=== PATIENT | male | born 1980 | race Caucasian/White ===

== ENCOUNTER 2016-09-27 13:49 | Outpatient (CLI) | payer OTHER | END 2016-09-27 13:50 | disposition home or self-care (01) | DX: G47.30 Sleep apnea, unspecified (principal); G47.8 Other sleep disorders; G47.10 Hypersomnia, unspecified; R06.83 Snoring ==

== ENCOUNTER 2016-11-21 19:32 | Outpatient (CLI) | payer OTHER | END 2016-11-21 19:33 | disposition home or self-care (01) | LOC: SC 19:32 | PROVIDERS: ATTEND Internal Medicine Pulmonary Disease | DX: G47.33 Obstructive sleep apnea (adult) (pediatric) (principal); Z68.24 Body mass index [BMI] 24.0-24.9, adult | CPT/HCPCS: 95810 ==

== ENCOUNTER 2016-12-23 11:04 | Outpatient (CLI) | payer OTHER | END 2016-12-23 11:05 | disposition home or self-care (01) | LOC: SC 11:04 | PROVIDERS: ATTEND Nurse Practitioner Family | DX: G47.33 Obstructive sleep apnea (adult) (pediatric) (principal) | CPT/HCPCS: 99212; 99214 ==

== ENCOUNTER 2017-05-18 15:48 | Outpatient (CLI) | payer OTHER | END 2017-05-18 15:49 | disposition home or self-care (01) | LOC: SC 15:48 | PROVIDERS: ATTEND Nurse Practitioner Family | DX: G47.33 Obstructive sleep apnea (adult) (pediatric) (principal) | CPT/HCPCS: 99212; 99214 ==

== ENCOUNTER 2017-08-18 09:27 | Outpatient (CLI) | payer OTHER | END 2017-08-18 09:28 | disposition home or self-care (01) | LOC: SC 09:27 | PROVIDERS: ATTEND Nurse Practitioner Family | DX: G47.33 Obstructive sleep apnea (adult) (pediatric) (principal) | CPT/HCPCS: 99212; 99214 ==

== ENCOUNTER 2018-01-03 16:25 | Outpatient (CLI) | payer OTHER ==
--- NOTE | 2018-01-03 18:26 | Ultrasound Report ---
Procedure Date: 01/03/2018 Accession Number: [id number] / [id number] Procedure: US - Testicle w/Doppler CPT Code: FULL RESULT: EXAM: SCROTAL ULTRASOUND WITH DOPPLER EXAM DATE: 01/03/2018 05:55 PM. CLINICAL HISTORY: Lower abdominal pain, concern for inguinal hernia. COMPARISON: None. TECHNIQUE: Real-time scanning was performed with static images obtained. Both color-flow and Doppler spectral analysis were utilized. FINDINGS: Right: Testis: 4.3 x 2.9 x 2.1 cm. Normal size and echotexture. No mass, calcification, or abnormal blood flow. Epididymis: 3.9 x 0.5 x 0.6 cm. Normal size and echotexture. No mass or abnormal blood flow. Hydrocele: None. Varicocele: None. Left: Testis: 4.5 x 3 x 2.8 cm. Normal size and echotexture. No mass, calcification, or abnormal blood flow. Epididymis: 2.7 x 0.8 x 0.4 cm. Normal size and echotexture. No mass or abnormal blood flow. Hydrocele: None. Varicocele: None. No herniated contents into the scrotum or findings of hernia. IMPRESSION: Negative scrotal ultrasound. [facility]
== END 2018-01-03 16:26 | disposition home or self-care (01) ==
LOC: DI 16:25
PROVIDERS: ATTEND Specialist
DX: N48.89 Other specified disorders of penis (principal); N50.89 Other specified disorders of the male genital organs
CPT/HCPCS: 76870; 93975

== ENCOUNTER 2018-03-07 10:35 | Outpatient (CLI) | payer OTHER | END 2018-03-07 10:36 | disposition home or self-care (01) | LOC: SC 10:35 | PROVIDERS: ATTEND Nurse Practitioner Family | DX: G47.33 Obstructive sleep apnea (adult) (pediatric) (principal) | CPT/HCPCS: 99212; 99214 ==

== ENCOUNTER 2019-05-16 14:36 | Outpatient (CLI) | payer OTHER ==
[2019-05-16 15:23] VITALS: BP 112/70
--- NOTE | 2019-05-16 15:23 | SLEEP CARE CONSULTATION ---
Information from patient questionnaire entered by Kylah Linares. I have reviewed and concur with the information entered by Kylah Linares. This document represents the service I personally performed and the decisions made by me, Ermelinda Gant, RN, MSN, TRAINING INTERN. History of Present Illness Previous diagnosis: Mild, Obstructive Sleep Apnea-Hypopnea Syndrome AHI: 8.0 Reason for follow up: annual (last seen 2018) Equipment type: CPAP Equipment obtained from: [employer] Mask style: Full face Backup mask available: No (keep current mask when replaced for a spare) Last cushion change: 3 months or so HPI additional information: Changes since last seen is he and his spouse are . CPAP Compliance Data - Data Reviewed with Patient Average duration of nightly device use: 6.25 Compliance rate %: 84.4 (180 days) Current pressure setting (cmH2O): 7 Humidity settin Heated hose settin Average residual AHI: 1.4 Average large leak: 2 sec Subjective Patient concerns: reports: dry mouth, nose, throat (waking with dry mouth and taking off mask. ). denies: aerophagia, mask discomfort, air blowing in eyes, mask leak noise, condensation in mask/hose (in past with weather change), nasal congestion, epistaxis Observed to snore while using device: No Current pressure setting perceived as: comfortable On therapy, patient: reports: sleeping better, awakening more refreshed, being more awake and alert during the day, more rested overall. denies: drowsiness while driving Initial [place] Sleepiness Scale score: 12 Current [place] Sleepiness Scale score: 9 Allergies and Home Medications Known drug allergies: No Home medication list reviewed: Yes Allergy and home medication list: Vitamin D 1000mg tab daily Escitalopram 20mg daily Review of Systems Review of systems same as previous: Yes Physical Exam Blood Pressure: 112/70 Cuff size: long Heart Rate: 72 O2 Saturation: 99 Height: 5 ft 11.5 in Weight: 185 lb 3.2 oz Weight change since last visit: gained 6 pound Body Mass Index: 25.4 BMI Classification: Overweight Impression and Plan 1. Obstructive Sleep Apnea-Hypopnea Syndrome, mild , with good treatment compliance and good apnea control. On CPAP therapy, the patient has better sleep quality and is more rested overall. To decrease oral dryness, he is to reduce heated hose and increase humidity as shown on sample device. Rationale discussed and written tips on printed instructions for changing settings. Patient's apnea severity and rationale for treatment to reduce apnea, improve sleep quality and reduce cardiovascular and cerebrovascular events was reviewed. I also reviewed the benefit of consistent device use of CPAP for depression/anxiety. * Continue CPAP pressure at 7 cmH2O * Adjust humidity as discussed. * Notify me if snoring with mask or feeling that the pressure is too much or too little * Attempt to lose some weight * Return for follow up in 1 year, or sooner if concerns arise I spent 100% of this 17 minute visit face to face with the patient with greater than 50% of this was spent time counseling the patient and coordination of care.
== END 2019-05-16 14:37 | disposition home or self-care (01) ==
LOC: SC 14:36
PROVIDERS: ATTEND Nurse Practitioner Family
DX: G47.33 Obstructive sleep apnea (adult) (pediatric) (principal)
CPT/HCPCS: 99212; 99213

== ENCOUNTER 2020-02-13 10:46 | Outpatient (CLI) | payer OTHER ==
[2020-02-13 11:40] VITALS: BP 114/66
--- NOTE | 2020-02-13 11:40 | SLEEP CARE CONSULTATION ---
Information from patient questionnaire entered by Kylah Linares. I have reviewed and concur with the information entered by Kylah Linares. This document represents the service I personally performed and the decisions made by me, Ermelinda Gant, RN, MSN, THROUGH OPERATOR. History of Present Illness Service Date and Time: 02/13/2020 1046 Previous diagnosis: Mild, Obstructive Sleep Apnea-Hypopnea Syndrome AHI: 8.0 (in 2017) Reason for follow up: other (9 month - issues with CPAP) Equipment type: CPAP Equipment obtained from: [employer] Mask style: Full face Backup mask available: Yes (old mask ) Last cushion change: a month ago Prior sleep studies: Yes Year and Where: 2017 - [facility] Type of Sleep Study: Polysomnography CPAP Compliance Data - Data Reviewed with Patient Average duration of nightly device use: 6 Compliance rate %: 86.7 (Last 30)(63.9 last 180) Current pressure setting (cmH2O): 7 Humidity settin Heated hose settin Average residual AHI: 1.1 Average large leak: 43 sec Subjective Missed days of use due to: reports: mask issues, other (CPAP itself) Patient concerns: reports: aerophagia (wakes bloated 2 times a week for past 3 months / no recent weight loss/ no), mask leak noise (mild occasionally - cleaning mask weekly), dry mouth, nose, throat (moderate dry mouth affecting CPAP use - called [employer] and humidifier not under warrantly anymore ), other (pulls off mask when wakes to dry mouth ). denies: mask discomfort, air blowing in eyes, condensation in mask/hose, nasal congestion, epistaxis Observed to snore while using device: No Current pressure setting perceived as: comfortable On therapy, patient: reports: sleeping better, awakening more refreshed, being more awake and alert during the day, more rested overall. denies: drowsiness while driving Initial [place] Sleepiness Scale score: 12 (in 2017) Current [place] Sleepiness Scale score: 9 Allergies and Home Medications Known drug allergies: No Home medication list reviewed: Yes (Lexapro reduced from 20mg to 10mg ) Review of Systems Review of systems same as previous: No Physical Exam Blood Pressure: 114/66 Cuff size: long Heart Rate: 63 O2 Saturation: 98 Height: 5 ft 11.5 in Weight: 191 lb Body Mass Index: 26.2 BMI Classification: Overweight Impression and Plan 1. Obstructive Sleep Apnea-Hypopnea Syndrome, mild, with good treatment compliance and good apnea control. On CPAP therapy, the patient has better sleep quality and is more rested overall. To reduce mask leaks, he is to wash mask cushion daily instead of weekly. This can be incorportated with brusing teeth time. CPAP wipes also are available to use for convenience but advised to wash off with soap and water at least weekly with other equipment directed by DME. To reduce symptoms of aerophagia, the CPAP pressure will be reduced to 6 cmH2O. Patient advised to contact me if this does not reduce symptoms or if pressure change uncomfortable. Lower pressure will also reduce mask leaks Patient has gained weight. Currently patients BMI is 26.2 obesity class . He would like to lose down to 180pounds as he feels better at this weight. Obesity increases the risk of apnea, CPAP pressure requirements and overall health risks especially cardiovascular and diabetes. Thus patient is advised to lose weight. Weight loss can be done with reducing portion size, reducing refined foods and balancing content with vegetables, fruit and protein. In addition tracking food intake will allow awareness of how to modify diet to achieve weight loss goals. Also eating more slowly will allow more awareness of food intake and enjoyment of food while assisting patient to modify intake at each meal. A diet consultation can be helpful in achieving optimal weight loss goals. The BMI chart was reviewed. Patient encouraged to discuss their weight loss goals with their PCP and consider a referral to a returned goods receiving clerk. The patient's CPAP pressure was changed to autoCPAP to accommodate for future weight loss. Symptoms to report for additional pressure adjustment discussed. Patient's apnea severity and rationale for treatment to reduce apnea, improve sleep quality and reduce cardiovascular and cerebrovascular events was reviewed. I also reviewed the benefit of consistent device use of CPAP for depression/anxiety which he has noted benefit and his Lexapro has been reduced this past year. Since patient has more severe apnea in supine position, patient advised to avoid supine sleep with pillow positioning if unable to use CPAP while ill or if without electricity to reduce apnea risk. * * Change auto CPAP pressure to 6 cmH2O * Check humidifier for malfunction. * Notify me if snoring with mask or feeling that the pressure is too much or too little * Attempt to lose weight * Call this office if any problems using CPAP * Return for follow up in 1 year , or sooner if concerns arise Visit Type: In Office Time Spent with Patient (minutes): 33 Provider Statement: I spent 100% of the Face to Face Visit with the patient with greater than 50% spent counseling the patient and coordination of care.
== END 2020-02-13 10:47 | disposition home or self-care (01) ==
LOC: SC 10:46
PROVIDERS: ATTEND Nurse Practitioner Family
DX: G47.33 Obstructive sleep apnea (adult) (pediatric) (principal); E66.3 Overweight; Z68.26 Body mass index [BMI] 26.0-26.9, adult
CPT/HCPCS: 99212; 99214